=== PATIENT | female | born 1945 | race Caucasian/White ===

== ENCOUNTER 2018-11-03 09:45 | Day surgery (SDC) | payer MEDICARE, OTHER ==
[~2018-11-03] VITALS: Ht 162.6 cm; Wt 64.3 kg
[~2018-11-03 09:45] MED LIST: Lyrica150 MG
[2018-11-03] MEDS ORDERED: LEVSOD50 PO (10:31)
--- NOTE | 2018-11-03 13:12 | NUR ---
11/03/18 1312 Luli Liang PT INTO RECLINER AT 1306. STEADY DURING TRANSFER. AT CHAIRSIDE. PT REFUSING PO NOURISHMENT AT THIS TIME, AND DENIES PAIN AND NAUSEA. VSS. CALL LIGHT IN REACH. WILL CONT TO MONITOR
== END 2018-11-03 13:40 | disposition home or self-care (01) ==
LOC: ORSCSDS 09:45
PROVIDERS: Orthopaedic Surgery
PROC: 0LQ14ZZ Repair Right Shoulder Tendon, Percutaneous Endoscopic Approach (ICD-10-PCS; principal; 2018-11-03 11:30)
PROC: 0LS14ZZ Reposition Right Shoulder Tendon, Percutaneous Endoscopic Approach (ICD-10-PCS; principal; 2018-11-03 11:30)
PROC: 0RNJ4ZZ Release Right Shoulder Joint, Percutaneous Endoscopic Approach (ICD-10-PCS; principal; 2018-11-03 11:30)
DX: M75.121 Complete rotator cuff tear or rupture of right shoulder, not specified as traumatic (principal); M75.21 Bicipital tendinitis, right shoulder; M75.51 Bursitis of right shoulder; M75.41 Impingement syndrome of right shoulder; I10 Essential (primary) hypertension; E03.9 Hypothyroidism, unspecified; Z79.899 Other long term (current) drug therapy
CPT/HCPCS: C1713; J0171; J0690; J1100; J1885; J2250; J2405; J2710; J2795; J3010; J7120

== ENCOUNTER 2021-09-05 02:10 | Emergency (ER) | payer MEDICARE, OTHER ==
[~2021-09-05] VITALS: Ht 162.6 cm; Wt 63.5 kg
[~2021-09-05 02:10] MED LIST changes: +LEVSOD50 PO
== END 2021-09-05 04:28 | disposition home or self-care (01) ==
LOC: ER 02:10
DX: J02.9 Acute pharyngitis, unspecified (principal)

== ENCOUNTER 2025-03-10 09:18 | Day surgery (SDC) | payer MEDICARE, OTHER ==
[~2025-03-10] VITALS: Ht 165.1 cm; Wt 62.5 kg
[~2025-03-10 09:18] MED LIST changes: +Balanced Salt Epinephrine Irrigation Solution 500 mL IR SCH; +Diazepam 5 MG Tab PO PRN; +Diazepam 5 MG Tab PO SCH; +Lidocaine HCl/Pf 1% 5 ML VIAL XX SCH; +Moxifloxacin HCL 0.5 MG/0.1 ML 0.4MLSYR RIGHTEYE SCH; +Ondansetron 4 MG SoluTab MM PRN; +PHENYLEPHRINE\\TROPICAMIDE\\TETRACAINE OPHTHALMIC DILATING SOLN RIGHTEYE PRN; +Povidone-Iodine 450 DROP/30 ML Solution ONE; +Povidone-Iodine 450 DROP/30 ML Solution RIGHTEYE SCH; +Tetracaine HCl/Pf 0.5% Opth Soln 4 ml ONE; +Triamcinolone Inj Susp 40 MG / ML 1ML Vial INJ SCH; +Triamcinolone Inj Susp 40 MG / ML 1ML Vial ONE
[2025-03-10] MEDS ORDERED: Diazepam 10 MG Tab ONE (09:41)
[2025-03-10] MEDS ORDERED: Crestor40 MG PO (10:08)
[2025-03-10] MEDS ORDERED: LOSA50 (10:08)
[2025-03-10] MEDS ORDERED: Flonase 0.05% N16 GM (10:08)
[2025-03-10] MEDS ORDERED: Aspir 8181 MG (10:08)
[2025-03-10] MEDS ORDERED: METO25ER (10:08)
--- NOTE | 2025-03-10 10:14 | NUR ---
03/10/25 1014 Caitlin Almendarez PT STATES ANXIETY LEVEL IS 7/10 IN PREOP BEFORE 10MG PO VALIUM CALL LIGHT IN HAND PT IS ON CONTINUOUS PULSE OX MONITORING IN PRE OP
--- NOTE | 2025-03-10 10:50 | NUR ---
03/10/25 1050 Maribel Moses BP-154/64 P-58 SPO2-99% 10L BLOW BY O2
[2025-03-10 11:09] VITALS: BP 147/64
--- NOTE | 2025-03-10 11:14 | NUR ---
03/10/[address] IN AT BEDSIDE.
== END 2025-03-10 11:26 | disposition home or self-care (01) ==
LOC: ORSCSDS 09:18
PROVIDERS: Ophthalmology
PROC: 08RJ3JZ Replacement of Right Lens with Synthetic Substitute, Percutaneous Approach (ICD-10-PCS; principal; 2025-03-10 11:00)
DX: H25.813 Combined forms of age-related cataract, bilateral (principal); H52.201 Unspecified astigmatism, right eye; Z79.82 Long term (current) use of aspirin; Z79.899 Other long term (current) drug therapy
CPT/HCPCS: A9270; J3301; V2632

== ENCOUNTER 2025-03-17 08:52 | Day surgery (SDC) | payer MEDICARE, OTHER ==
[~2025-03-17] VITALS: Ht 165.1 cm; Wt 63.5 kg
[~2025-03-17 08:52] MED LIST changes: +Aspir 8181 MG; +Crestor40 MG PO; -Diazepam 5 MG Tab PO PRN; -Diazepam 5 MG Tab PO SCH; +Flonase 0.05% N16 GM; +LOSA50; -Lidocaine HCl/Pf 1% 5 ML VIAL XX SCH; +METO25ER; +Moxifloxacin HCL 0.5 MG/0.1 ML 0.4MLSYR LEFTEYE SCH; -Moxifloxacin HCL 0.5 MG/0.1 ML 0.4MLSYR RIGHTEYE SCH; +PHENYLEPHRINE\\TROPICAMIDE\\TETRACAINE OPHTHALMIC DILATING SOLN LEFTEYE PRN; -PHENYLEPHRINE\\TROPICAMIDE\\TETRACAINE OPHTHALMIC DILATING SOLN RIGHTEYE PRN; +Povidone-Iodine 450 DROP/30 ML Solution LEFTEYE SCH; -Povidone-Iodine 450 DROP/30 ML Solution RIGHTEYE SCH
--- NOTE | 2025-03-17 10:54 | NUR ---
03/17/25 1054 Allie Collier VITALS AT 1053 BP: 145/60 P: 54 O2: 100% WITH 6 LITERS OF BLOW BY OXYGEN
[2025-03-17 11:09] VITALS: BP 141/61
== END 2025-03-17 11:35 | disposition home or self-care (01) ==
LOC: ORSCSDS 08:52
PROVIDERS: Ophthalmology
PROC: 08RK3JZ Replacement of Left Lens with Synthetic Substitute, Percutaneous Approach (ICD-10-PCS; principal; 2025-03-17 11:00)
DX: H25.812 Combined forms of age-related cataract, left eye (principal); Z96.1 Presence of intraocular lens; Z79.899 Other long term (current) drug therapy
CPT/HCPCS: A9270; J3301; V2632

== ENCOUNTER 2025-08-03 20:40 | Emergency (ER) | payer MEDICARE, OTHER ==
[~2025-08-03] VITALS: Ht 165.1 cm; Wt 56.7 kg
[~2025-08-03 20:40] MED LIST changes: +ACET325UDC PT; +ADULT TUSS100 MG/51 PO; -Balanced Salt Epinephrine Irrigation Solution 500 mL IR SCH; +FENTANYL1 EA12 TOP; +LOPERAMIDE1 MG/7.10 PT; +LORA10ER PT; +LOSARTAN POTAS100 M1 PT; -Lyrica150 MG; +Lyrica150 MG PT; +METHOCARBAMOL1000 MG PT; +MIRALAX17 GM PT; +Methocarbamol500 MG PT; -Moxifloxacin HCL 0.5 MG/0.1 ML 0.4MLSYR LEFTEYE SCH; +OXYC1L PT; -Ondansetron 4 MG SoluTab MM PRN; -PHENYLEPHRINE\\TROPICAMIDE\\TETRACAINE OPHTHALMIC DILATING SOLN LEFTEYE PRN; +PREG75 PO; -Povidone-Iodine 450 DROP/30 ML Solution LEFTEYE SCH; -Povidone-Iodine 450 DROP/30 ML Solution ONE; +Promod946 ML PT; +Protonix40 M1 PT; -Tetracaine HCl/Pf 0.5% Opth Soln 4 ml ONE; -Triamcinolone Inj Susp 40 MG / ML 1ML Vial INJ SCH; -Triamcinolone Inj Susp 40 MG / ML 1ML Vial ONE; +[UNRECOGNIZED DRUG - OTHER] PT
[2025-08-03 21:52] LABS: Alanine Aminotransfer (ALT/SGP 32.0 U/L (12-78); Albumin, Blood 2.0 g/dL (3.4-5.0); Albumin/Globulin Ratio 0.7 (0.8-1.8); Anion Gap 7.0 mmol/L (3-11); Aspartate Aminotrans (AST/SGOT 22.0 U/L (12-37); Bilirubin, Total 0.4 mg/dL (0.1-1.0); Blood Urea Nitrogen 15.0 mg/dL (8-24); CO2, Blood 26.0 mmol/L (21-32); Calcium, Blood 8.4 mg/dL (8.5-10.1); Chloride, Blood 112.0 mmol/L (98-108); Creatinine, Blood 0.42 mg/dL (0.40-1.00); Globulin, Blood 3.0 g/dL (2.2-4.0); Glucose, Blood 100.0 mg/dL (70-99); Potassium, Blood 4.0 mmol/L (3.5-5.5); Sodium, Blood 141.0 mmol/L (136-145); Total Protein, Blood 5.0 g/dL (6.4-8.2)
[2025-08-03 21:58] LABS: BASOPHILS ABSOLUTE AUTO 0.05 K/mm3 (0.00-0.23); BASOPHILS PERCENT AUTO 1 % (0-2); EOSINOPHILS ABSOLUTE AUTO 0.38 K/mm3 (0.00-0.68); EOSINOPHILS PERCENT AUTO 5 % (0-6); Hematocrit 34.8 % (33.0-51.0); Hemoglobin 11.5 g/dL (11.5-16.0); IMMATURE GRAN ABSOLUTE AUTO 0.09 K/mm3 (0.00-0.10); IMMATURE GRAN PERCENT AUTO 1 % (0-1); LYMPHOCYTES ABSOLUTE AUTO 1.68 K/mm3 (0.84-5.20); LYMPHOCYTES PERCENT AUTO 21 % (21-46); MONOCYTES ABSOLUTE AUTO 0.54 K/mm3 (0.16-1.47); MONOCYTES PERCENT AUTO 7 % (4-13); Mean Corpuscular HGB Conc 33.0 g/dL (31.5-36.5); Mean Corpuscular Volume 93 fL (80-100); NEUTROPHILS ABSOLUTE AUTO 5.26 K/mm3 (1.96-9.15); NEUTROPHILS PERCENT AUTO 66 % (41-73); NRBC ABSOLUTE 0.04 K/mm3 (0.00-0.02); NRBC Auto 0.5 /100 WBC (0.0-0.2); RDW Coefficient Variation 14.1 % (11.7-14.2); RDW Standard Deviation 47.6 fL (35.1-46.3)
[2025-08-03 22:14] LABS: Platelet Count 192 K/mm3 (150-400)
[2025-08-04 05:00] VITALS: BP 147/79
== END 2025-08-04 05:33 | disposition home or self-care (01) ==
LOC: ER 20:40
PROVIDERS: Emergency Medicine
DX: R07.89 Other chest pain (principal); I10 Essential (primary) hypertension; E78.5 Hyperlipidemia, unspecified; Z79.899 Other long term (current) drug therapy
CPT/HCPCS: 71260; 80053; 83880; 84484; 85025; 93005; 93010; 99285-25; Q9967